=== PATIENT | female | born 1970 | race Caucasian/White ===

== ENCOUNTER 2019-02-27 09:22 | Emergency (ER) | payer MEDICAID, OTHER ==
[~2019-02-27] VITALS: Ht 170.2 cm; Wt 77.3 kg
[2019-02-27 09:26] VITALS: Ht 170.2 cm; Wt 77.3 kg
[2019-02-27] MEDS ORDERED: ONDANSETRON (ODT) 4 MG TAB ODT STA ×2 (11:32→13:32)
[2019-02-27] MEDS ORDERED: HYDROCODONE/APAP (10/325) TAB PO ONE (12:00)
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
[2019-02-27] MEDS ORDERED: KETOROLAC 30 MG INJ IM STA (14:37)
[2019-02-27] MEDS ORDERED: CYCL10TA7 PO (14:53)
[2019-02-27] MEDS ORDERED: NAPR-985 PO (14:53)
[2019-02-27] MEDS ORDERED: ONDA4TAB8 PO (14:53)
[2019-02-27 15:00] VITALS: BP 127/84; PULSE 77; RESP 18
== END 2019-02-27 15:09 | disposition home or self-care (01) ==
LOC: FTE 09:22
DX: S40.012A Contusion of left shoulder, initial encounter (principal); S29.011A Strain of muscle and tendon of front wall of thorax, initial encounter; R51 Headache; S16.1XXA Strain of muscle, fascia and tendon at neck level, initial encounter; R07.9 Chest pain, unspecified; S83.8X2A Sprain of other specified parts of left knee, initial encounter; V49.49XA Driver injured in collision with other motor vehicles in traffic accident, initial encounter
CPT/HCPCS: 70450; 71045; 73510; 73562; 81025; 96372; 99285; J1885